=== PATIENT | male | born 1980 | race Caucasian/White ===

== ENCOUNTER 2020-02-21 15:49 | Emergency (ER) | payer SELFPAY ==
[~2020-02-21] VITALS: Ht 175.3 cm; Wt 86.4 kg
[2020-02-21 15:56] VITALS: Ht 175.3 cm; Wt 86.4 kg
[2020-02-21] MEDS ORDERED: DOXYCYCLINE HY100 M2 PO (17:14)
[2020-02-21] MEDS ORDERED: DICLOFENAC SODI50 MG PO (17:14)
[2020-02-21 17:37] LABS: BASOPHILS 0.6 % (0-2); EOSINOPHILS 3.1 % (0-7); HEMATOCRIT 45.1 % (42.0-54.0); HEMOGLOBIN 15.1 g/dL (13.5-17.5); IMMATURE GRANULOCYTES 0.3 % (0-5); LYMPHOCYTES 14.7 % (15-50); MCH 30.8 pg (26.0-34.0); MCHC 33.5 g/dL (31.0-37.0); MCV 91.9 fL (80.0-100.0); MEAN PLATELET VOLUME 9.5 fL (7.4-10.4); MONOCYTES 9.5 % (2-11); NEUTROPHILS 71.8 % (40-80); PLATELET COUNT 213 10x3/uL (130-400); RBC 4.91 10x6/uL (4.20-6.10); RDW 12.8 % (11.5-14.5); WBC 10.3 10x3/uL (4.8-10.8)
[2020-02-21 18:05] LABS: ANION GAP 12.2 mmol/L (8-16); CALCIUM 9.9 mg/dL (8.5-10.1); CARBON DIOXIDE 29.6 mmol/L (21.0-32.0); CREATININE - SERUM 1.3 mg/dL (0.6-1.3); POTASSIUM - SERUM 3.8 mmol/L (3.5-5.1)
[2020-02-21 18:11] LABS: ALBUMIN 4.2 g/dL (3.4-5.0); BILIRUBIN - TOTAL 0.61 mg/dL (0.2-1.3); C-REACTIVE PROTEIN 3.1 mg/dL (0.0-0.9)
[2020-02-21 18:14] VITALS: BP 136/82
== END 2020-02-21 18:17 | disposition home or self-care (01) ==
LOC: D.ER 15:49
PROVIDERS: Family Medicine
DX: N45.1 Epididymitis (principal); I10 Essential (primary) hypertension; Z72.0 Tobacco use